=== PATIENT | female | born 1990 | race American Indian/Alaskan Native ===

== ENCOUNTER 2019-02-01 15:56 | Outpatient (CLI) | payer OTHER ==
[2019-02-01 16:31] VITALS: BP 113/66
--- NOTE | 2019-02-01 18:42 | Ultrasound Report ---
PROCEDURE: US OB BPP WO NON-STRESS TECHNIQUE: Ultrasound for biophysical profile obtained. HISTORY: decreased movement. COMPARISONS: 01/31/2019. FINDINGS: Single IUP visualized. Viable fetus with heart rate of 149 bpm. Biophysical profile is 8/8. IMPRESSION: Biophysical profile is 8/8.. This document is electronically signed by Dasia Lainez MD., Feb 01 2019 06:41:03 PM ET
== END 2019-02-01 15:57 | disposition home or self-care (01) ==
LOC: TRG 15:56
PROVIDERS: ATTEND Obstetrics & Gynecology
DX: O47.03 False labor before 37 completed weeks of gestation, third trimester (principal); Z3A.34 34 weeks gestation of pregnancy
CPT/HCPCS: 59025; 76819

== ENCOUNTER 2019-03-09 11:33 | Outpatient (CLI) | payer OTHER | END 2019-03-09 13:20 | disposition home or self-care (01) | LOC: TRG 11:33 | PROVIDERS: ATTEND Obstetrics & Gynecology | DX: O47.1 False labor at or after 37 completed weeks of gestation (principal); Z3A.40 40 weeks gestation of pregnancy | CPT/HCPCS: 59025 ==

== ENCOUNTER 2019-03-15 10:54 | Inpatient (IN) | payer OTHER ==
[2019-03-15] MEDS ORDERED: LACTATED RINGERS 1,000 ML IV ONE (13:00)
--- NOTE | 2019-03-15 14:08 | Ultrasound Report ---
PROCEDURE: US OB BPP WO NON-STRESS TECHNIQUE: Sonographic evaluation for breathing, movement, tone, and amniotic flui d volume was performed. HISTORY: DAYANA; non reactive NST COMPARISONS: 02/01/2019 . FINDINGS: FETUS Amniotic fluid volume Normal-score 2. At least one vertical pocket >2 cm or more in vertical axis . breathing: Normal-score 2 . movement: Normal-score 2 . tone: Normal-score 2 . Score: 8 of 8 . heart rate: 154 bpm IMPRESSION: Normal biophysical profile . This document is electronically signed by Maggi Bermudez MD., March 15 2019 02:07:00 PM ET
--- NOTE | 2019-03-15 14:10 | Ultrasound Report ---
PROCEDURE: US OB LIMITED TECHNIQUE: Limited obstetric ultrasound was performed for evaluation of hepatic fluid index. HISTORY: DAYANA COMPARISONS: Obstetric ultrasound performed on 01/30/2019 and 02/01/2019 FINDINGS: There is a single live intrauterine in cephalic presentation. heart rate is 154 bpm. Amniotic fluid index is 7.7 cm, which is in the lower limits of normal. IMPRESSION: Amniotic fluid index is 7.7 cm, which is in the lower limits of normal. This document is electronically signed by Maggi Bermudez MD., March 15 2019 02:08:38 PM ET
[2019-03-15] MEDS ORDERED: NITRATEST PAPER MC ONE (15:00)
[2019-03-15] MEDS ORDERED: XYLOCAINE 2% INFILTRATI ONE (15:15)
[2019-03-15] MEDS ORDERED: BRETHINE IVP PRN (15:15)
[2019-03-15] MEDS ORDERED: BRETHINE SUB-Q PRN (15:15)
[2019-03-15] MEDS ORDERED: MINERAL OIL PO PRN (15:15)
[2019-03-15] MEDS ORDERED: STADOL IV PRN (15:15)
[2019-03-15] MEDS ORDERED: SUBLIMAZE IV PRN (15:15)
[2019-03-15] MEDS: LACTATED RINGERS 1,000 ML IV SCH ×2 (15:44→20:01)
[2019-03-15] MEDS ORDERED: PITOCin/NS 30 UNIT/500ML 30 UNITS/500 ML BAG IV SCH ×2 (16:00)
[2019-03-15] MEDS ORDERED: PITOCin/NS 20 UNIT/1000ML DRIP 20 UNITS/1,000 ML BAG IV SCH (16:00)
[2019-03-15 18:19] LABS: Hematocrit 30.1 % (30.3-42.9); Hemoglobin 9.5 gm/dl (10.1-14.3); Mean Corpuscular HGB Conc 32 % (30-34); Mean Corpuscular Volume 71 fl (79-97); Platelet Count 277 K/mm3 (140-440); Red Blood Count 4.27 M/mm3 (3.65-5.03)
[2019-03-15 18:25] LABS: Red Cell Distribution Width 20.6 % (13.2-15.2)
[2019-03-15] MEDS ORDERED: NARCAN 2 MG/2 ML IV PRN (19:51)
--- NOTE | 2019-03-15 19:53 | Anesthesia Consultation ---
Anesthesia Consult and Med Hx - Airway Anesthetic Teeth Evaluation: Good ROM Head & Neck: Adequate Mental/Hyoid Distance: Adequate Mallampati Class: Class I Intubation Access Assessment: Good - Pulmonary Exam CTA: Yes - Cardiac Exam Cardiac Exam: RRR - Pre-Operative Health Status ASA Pre-Surgery Classification: ASA2 Proposed Anesthetic Plan: Epidural - Pulmonary Hx Asthma: No COPD: No Hx Pneumonia: No - Cardiovascular System Hx Hypertension: No - Central Nervous System Hx Seizures: No Hx Psychiatric Problems: No - Endocrine Hx Renal Disease: No Hx End Stage Renal Disease: No Hx Hypothyroidism: No Hx Hyperthyroidism: No - Hematic Hx Anemia: No Hx Sickle Cell Disease: No - Other Systems Hx Alcohol Use: No
--- NOTE | 2019-03-15 19:54 | Anesthesia Day of Surgery ---
Anesthesia Day of Surgery - Day of Surgery Patient Examined: Yes Patient H&P Reviewed: Yes Patient is NPO: Yes Beta Blockers: No Cardiac Clearance: No Pulmonary Clearance: No Gene's Test: N/A
[2019-03-15] MEDS ORDERED: fentaNYL-BUPIV 2 MCG/ML-0.125% 200 MCG/100 ML BAG EPIDURAL SCH (20:00)
[2019-03-15] MEDS ORDERED: MARCAINE 0.25% INFILTRATI ONE (20:14)
[2019-03-16] MEDS ORDERED: PEPCID IV ONE (00:32)
[2019-03-16] MEDS ORDERED: REGLAN IV ONE (00:32)
[2019-03-16] MEDS ORDERED: BICITRA ONE (00:41)
[2019-03-16] MEDS ORDERED: PHENERGAN PO PRN (00:42)
[2019-03-16] MEDS ORDERED: PHENERGAN PR PRN ×2 (00:42→05:26)
[2019-03-16] MEDS ORDERED: DILAUDID IV PRN (00:42)
[2019-03-16] MEDS ORDERED: NARCAN 0.4 MG/1 ML IV PRN ×2 (00:42→05:26)
[2019-03-16] MEDS ORDERED: ZOFRAN IV PRN ×2 (00:42→05:26)
[2019-03-16] MEDS ORDERED: BENADRYL IV PRN (00:42)
[2019-03-16] MEDS ORDERED: SODIUM CHLORIDE FLUSH SYRINGE 10 ML IV PRN ×2 (01:00→05:26)
[2019-03-16] MEDS ORDERED: XYLOCAINE 2%/ EPI 1:200,000 INFILTRATI ONE (01:07)
--- NOTE | 2019-03-16 01:36 | History and Physical Report ---
History of Present Illness Date of examination: 03/16/19 Date of admission: 03/15/19 14:40 Chief complaint: I'm having contractions History of present illness: Pt is a 28 year old who presents with contractions at 40.6 weeks and EDC 03/09/19. She has had an uncomplicated course and is scheduled for induction of labor on 03/18. Past History Past Medical History: no pertinent history Past Surgical History: no surgical history Family/Genetic History: hypertension Social history: single - Obstetrical History Expected Date of Delivery: 03/09/19 Actual Gestation: 41 Week(s) 0 Day(s) : 3 Para: 1 Medications and Allergies Allergies Allergy/AdvReac Type Severity Reaction Status Date / Time No Known Allergies Allergy Verified 03/15/19 11:11 Home Medications Medication Instructions Recorded Confirmed Last Taken Type No Known Home Medications [No 03/15/19 03/15/19 Unknown History Reported Home Medications] Active Meds: Active Medications Butorphanol Tartrate (Stadol) 2 mg IV Q2H PRN PRN Reason: Pain , Severe (7-10) Last Admin: 03/15/19 18:48 Dose: 2 mg Documented by: Diphenhydramine HCl (Benadryl) 12.5 mg IV Q2H PRN PRN Reason: Itching Ephedrine Sulfate (Ephedrine Sulfate) 10 mg IV Q2M PRN PRN Reason: Hypotension Fentanyl (Sublimaze) 100 mcg IV Q2H PRN PRN Reason: Labor Pain Last Admin: 03/15/19 17:01 Dose: 100 mcg Documented by: Hydromorphone HCl (Dilaudid) 0.5 mg IV Q5M PRN PRN Reason: Breakthrough Pain Oxytocin/Sodium Chloride (Pitocin/Ns 20 Unit/1000ml Drip) 20 units in 1,000 mls @ 125 mls/hr IV DIRECT RAGHAV Oxytocin/Sodium Chloride (Pitocin/Ns 30 Unit/500ml) 30 units in 500 mls @ 1 mls/hr IV TITR RAGHAV; Protocol Oxytocin/Sodium Chloride (Pitocin/Ns 30 Unit/500ml) 30 units in 500 mls @ 4 mls/hr IV TITR RAGHAV; Protocol Last Titration: 03/15/19 23:00 Dose: 2 ml/hr, 2 mls/hr Documented by: Lactated Ringer's (Lactated Ringers) 1,000 mls @ 125 mls/hr IV DIRECT RAGHAV Last Admin: 03/15/19 20:01 Dose: 125 mls/hr Documented by: Fentanyl/Bupivacaine/Sodium Chlor (Fentanyl-Bupiv 2 Mcg/Ml-0.125%) 200 mcg in 100 mls @ 12 mls/hr EPIDURAL TITR RAGHAV; Protocol Last Admin: 03/15/19 22:34 Dose: 12 mls/hr Documented by: Mineral Oil (Mineral Oil) 30 ml PO QHS PRN PRN Reason: Constipation Naloxone HCl (Narcan 0.4 Mg/1 Ml) 0.2 mg IV Q2MIN PRN PRN Reason: Res Rate </= 8 or 02 SAT < 92% Ondansetron HCl (Zofran) 4 mg IV Q8H PRN PRN Reason: Nausea And Vomiting Promethazine HCl (Phenergan) 25 mg PO Q6H PRN PRN Reason: Nausea And Vomiting Promethazine HCl (Phenergan) 25 mg WA Q6H PRN PRN Reason: Nausea And Vomiting Sodium Chloride (Sodium Chloride Flush Syringe 10 Ml) 10 ml IV PRN PRN PRN Reason: LINE FLUSH Terbutaline Sulfate (Brethine) 0.25 mg SUB-Q ONCE PRN PRN Reason: Hyperstimulation/Hypertonicity Terbutaline Sulfate (Brethine) 0.25 mg IVP ONCE PRN PRN Reason: Hyperstimulation/Hypertonicity Review of Systems All systems: negative Genitourinary: pelvic pain, contractions - Vital Signs Vital signs: Vital Signs Pulse BP 100 H 113/67 03/15/19 11:06 03/15/19 11:06 Temp Pulse Resp BP Pulse Ox 98.5 F 110 H 20 120/66 99 03/16/19 01:09 03/16/19 01:28 03/16/19 01:09 03/16/19 01:17 03/16/19 01:28 - Physical Exam Breasts: Cardiovascular: Regular rate, Normal S1, Normal S2 Lungs: Positive: Clear to auscultation, Normal air movement Abdomen: Positive: normal appearance, soft, normal bowel sounds. Negative: distention, tenderness Vulva: both: normal Vagina: Positive: normal moisture. Negative: discharge Cervix: Negative: lesion, discharge Uterus: Positive: normal size, normal contour Adnexa: both: normal Anus/Rectum: Positive: normal perianal skin, heme negative. Negative: rectal mass, hemorrhoids Extremities: Deep Tendon Reflex Grade: Normal +2 - Obstetrical FHR: auscultation normal Cervical Dilatation: 4 Cervical Effacement Percentage: 80 station: -3 Uterine Contraction Pattern: Regular Uterine Tone Measurement Phase: Contraction Uterine Contraction Intensity: Moderate Results Result Diagrams: 03/15/19 17:55 Abnormal lab results 03/15/19 Range/Units 17:55 WBC 12.5 H (4.5-11.0) K/mm3 Hgb 9.5 L (10.1-14.3) gm/dl Hct 30.1 L (30.3-42.9) % MCV 71 L (79-97) fl MCH 22 L (28-32) pg RDW 20.6 H (13.2-15.2) % All other labs normal. Assessment and Plan IUP at 40.6 in labor. Pt had arom while in triage for light meconium. Will admit for augmentation of labor. GBs negative. Anticipate .
[2019-03-16] MEDS ORDERED: ZOFRAN ONE ×2 (01:52→02:32)
[2019-03-16] MEDS ORDERED: SUBLIMAZE ONE (01:52)
--- NOTE | 2019-03-16 01:52 | Event Note ---
Date: 03/16/19 Was advised by nursing staff that patient was 8-9cm at approximately 8pm. Patient also began having late decelerations with pitocin. Despite position adjustments and contractions, patient did not progress past 9cm. Will now proceed with urgent .
[2019-03-16] MEDS ORDERED: LACTATED RINGERS 1,000 ML ONE ×2 (01:53→02:46)
[2019-03-16] MEDS ORDERED: ANCEF/STERILE WATER 2 GM/20 ML IV ONE (01:55)
[2019-03-16] MEDS ORDERED: NEO SYNEPHRINE/NS Syringe(OR USE) IV ONE (01:55)
[2019-03-16] MEDS ORDERED: TORADOL ONE (02:08)
--- NOTE | 2019-03-16 02:50 | Procedure Note ---
OB Delivery Note - Delivery Date of Delivery: 03/16/19 Surgeon: PEG LÓPEZ Estimated blood loss: other (650) - Section Preop diagnosis: arrest of descent, nonreassuring FHR tracing Postop diagnosis: same section procedure: primary low transverse Disposition: PACU Complications: none Narrative: see op report - Infant A at 1 minute: 8 at 5 minutes: 9 Gender: Male (3934g, 8 pounds 11 ounces)
--- NOTE | 2019-03-16 02:59 | Operative Report ---
Operative Report Operative Report: The operative report for patient Tessa Jackson Date of service 03/16/2019 Preoperative diagnosis: Intrauterine at 40-6/7 weeks 2. Arrested labor 3. intolerance of labor Postoperative diagnosis: Same with deep transverse arrest and meconium fluid Procedure: Primary low transverse section Surgeon: Dr. Genia Gracia EBL: 650 mL Urine output: 100 mL IV fluids: 1300 mL LR Findings: Viable male in the vertex occiput posterior position. Weight 8 lbs. 11 oz. 3934 g Apgars 8 and 9]. Otherwise normal pelvic anatomy Specimens: None Complications: None Procedure: The patient was admitted to the OR with IV running and in place. She was properly identified as herself. Her spinal had been placed in the room and she was already under the effects of anesthesia upon entry into the OR. She was placed in the dorsal supine position with a leftward tilt. A Townsend catheter was inserted. She was then prepped and draped in the normal sterile fashion. An Allis test was used to confirm adequate anesthesia. Once confirmed, the incision was made with the scalpel and carried to the underlying fascia using the scalpel and the Bovie. The fascia was incised in the midline and incision was extended bilaterally using the curved Mcguire scissors. The fascia was then dissected from the underlying rectus muscles in a series of sharp and blunt dissection using the Mcguire scissors. Muscles were in the in the midline sharply using Metzenbaum scissors and the peritoneum was entered into bluntly using the surgeon's fingers. A bladder blade was then placed into the incision to protect the bladder. Following this the bladder flap was created. Hysterotomy incision was then made in the scalpel. Upon uterine entry, the amniotic sac was ruptured for meconium fluid. The was then delivered in the occiput posterior position. His mouth and nose were suctioned on the field. The cord was clamped and cut and he was handed to the waiting NICU personnel. The placenta was delivered manually and taken off the field. The uterus was then exteriorized and cleared of all clots and debris. The hysterotomy incision was then closed in a running locked fashion using 0 Vicryl. The abdomen was then copiously irrigated with warm normal saline. Following this the uterus was replaced into the abdominal cavity. At this point the muscles were reapproximated in the midline using individual sutures of 0 Vicryl. Following this the fascia was closed in a running fashion using 0 Vicryl. Tissue was then copiously irrigated. . Skin was closed in a running fashion using 3-0 Monocryl. The sponge lap needle and instrument counts were correct 2. The patient tolerated the procedure well. She was taken to recovery in stable condition.
--- NOTE | 2019-03-16 03:34 | Post Anesthesia Evaluation ---
- Post Anesthesia Evaluation Patient Participated: Yes Airway Patent: Yes Stable Respiratory Function: Yes Nausea/Vomiting: No Temp > 96.8F: Yes Pain Manageable: Yes Adequeate Hydration: Yes Anesthesia Complications: No Block Receding Appropriately: Yes Patient on Ventilator: No
[2019-03-16] MEDS ORDERED: MYLICON PO PRN (05:26)
[2019-03-16] MEDS ORDERED: TUCKS PAD TP PRN (05:26)
[2019-03-16] MEDS ORDERED: MORPHINE IV PRN (05:26)
[2019-03-16] MEDS ORDERED: MILK OF MAGNESIA PO PRN (05:26)
[2019-03-16] MEDS ORDERED: TYLENOL PO PRN (05:26)
[2019-03-16] MEDS ORDERED: TORADOL IV PRN (05:26)
[2019-03-16] MEDS ORDERED: LANSINOH TP PRN (05:26)
[2019-03-16] MEDS ORDERED: PITOCin/NS 20 UNIT/1000ML DRIP 20 UNITS/1,000 ML BAG IV SCH (05:26)
[2019-03-16] MEDS ORDERED: D5LR 1,000 ML IV SCH (08:00)
[2019-03-16] MEDS: PERCOCET 5/325 PO PRN ×2 (09:51→21:36)
[2019-03-16] MEDS: PRENATAL VITAMIN PO SCH (09:55)
[2019-03-16] MEDS: IBUPROFEN PO PRN ×2 (09:56→21:37)
[2019-03-16] MEDS ORDERED: FEOSOL PO SCH (10:00)
[2019-03-16 16:00] LABS: Hematocrit 22.7 % (30.3-42.9)
[2019-03-16] MEDS: FEOSOL PO SCH (21:36)
--- NOTE | 2019-03-17 08:26 | Progress Note ---
Assessment and Plan - Patient Problems (1) delivery delivered Current Visit: Yes Status: Acute Plan to address problem: routine postoperative care advance diet as tolerated Subjective - Subjective Date of service: 03/17/19 Interval history: POD #1 s/p delivery. Patient reports having flatus. States having some operative pain that is improving. Voiding without difficulty. Patient reports: appetite normal, voiding normally, flatus : doing well Objective - Vital Signs Latest vital signs: Vital Signs Temp Pulse Resp BP Pulse Ox 03/17/19 01:30 98.4 F 96 H 18 117/68 98 03/16/19 22:37 18 03/16/19 22:36 18 03/16/19 21:37 18 03/16/19 21:36 18 03/16/19 20:41 98.6 F 108 H 18 116/76 98 03/16/19 18:02 98.1 F 91 H 16 114/65 100 03/16/19 12:44 98.4 F 91 H 16 119/75 99 03/16/19 09:47 97.7 F 96 H 16 116/78 98 Intake and Output 03/16/19 03/17/19 03/17/19 22:59 06:59 14:59 Intake Total 480 240 Output Total 300 400 Balance 180 -160 Intake: Intake, Free Water 480 240 Output: Urine 300 400 Void 300 400 Other: Total, Output Amount 300 400 # Voids Void 2 - Exam Abdomen: Present: normal appearance Incision: Present: dressed - Labs Labs: Abnormal lab results 03/16/19 Range/Units 15:51 Hgb 7.0 L (10.1-14.3) gm/dl Hct 22.7 L D (30.3-42.9) %
[2019-03-17] MEDS: PERCOCET 5/325 PO PRN ×3 (08:30→23:10)
[2019-03-17] MEDS: FEOSOL PO SCH ×3 (08:30→21:14)
[2019-03-17] MEDS: IBUPROFEN PO PRN ×3 (08:30→23:11)
[2019-03-17] MEDS: PRENATAL VITAMIN PO SCH (10:44)
[2019-03-18] MEDS: IBUPROFEN PO PRN ×2 (06:15→20:11)
[2019-03-18] MEDS: PERCOCET 5/325 PO PRN ×2 (08:49→20:10)
[2019-03-18] MEDS: PRENATAL VITAMIN PO SCH (08:49)
[2019-03-18] MEDS: FEOSOL PO SCH ×3 (08:49→20:11)
--- NOTE | 2019-03-18 12:53 | Progress Note ---
Assessment and Plan A: 1. POD 1 s/p primary LTCS for arrest of dilation 2. Vital signs stable, passing flatus 3. Incisional pain 4. Iron deficiency anemia P: Plan for discharge to home tomorrow Assess incision upon dressing removal Ferrous sulfate TID Subjective - Subjective Date of service: 03/18/19 Principal diagnosis: Post-op day 2 Interval history: Pt is post-op day 2 s/p primary LTCS for arrest of dilation. She is feeling well overall, some stinging pain at incision site upon sudden movement. Labs indicate hemoglobin 9.5 -> 7.0 Patient reports: appetite normal, voiding normally, pain well controlled, f latus, ambulating normally [place]: doing well Objective - Vital Signs Latest vital signs: Vital Signs Temp Pulse Resp BP BP Pulse Ox 03/18/19 08:11 98.4 F 96 H 20 135/85 03/18/19 06:15 18 03/18/19 00:36 16 03/18/19 00:35 98.4 F 94 H 121/68 97 03/18/19 00:11 18 03/17/19 23:11 18 03/17/19 23:10 18 03/17/19 17:19 20 03/17/19 17:18 20 03/17/19 16:40 97.9 F 98 H 20 109/67 Intake and Output 03/17/19 03/18/19 03/18/19 23:59 07:59 15:59 Intake Total 120 720 240 Balance 120 720 240 Intake: Oral 120 720 240 Other: Total, Intake Amount 120 720 240 # Voids Void 1 3 1 - Exam Cardiovascular: Present: Regular rate, Normal S1, Normal S2, No murmurs Lungs: Present: Clear to auscultation, Normal air movement Abdomen: Present: normal appearance, soft, normal bowel sounds Uterus: Present: normal, firm, fundal height below umbilicus Extremities: Present: normal Incision: Present: normal, dry, other (Feels some stinging pain due to movement. Dressing still applied.)
--- NOTE | 2019-03-18 12:58 | Discharge Summary ---
Providers - Providers Date of Admission: 03/15/19 14:40 Date of discharge: 03/19/19 Attending physician: JOHNIE HERNANDEZ Primary care physician: JOHNIE HERNANDEZ Hospitalization Reason for admission: active labor Delivery: Procedure: section, primary low transverse (For intolerance of labor and failure to dilate past 9 cm. OP presentation) Episiotomy: none Incision: normal, dry Other procedures: none complications: none Discharge diagnosis: IUP at term delivered Condition at discharge: Good Disposition: DC-30 STILL A PATIENT Plan - Discharge Medications Prescriptions: Ferrous Sulfate [Feosol 325 MG tab] 325 mg PO TID 30 Days #90 tablet Ibuprofen [Motrin] 800 mg PO Q8HR PRN #60 tablet PRN Reason: Pain, Mild (1-3) oxyCODONE /ACETAMINOPHEN [Percocet 5/325] 1 tab PO Q6HR PRN #30 tablet PRN Reason: Pain Vit-Fe Fumar-FA [ Vitamin] 1 each PO QDAY 30 Days #30 tablet - Provider Discharge Summary Additional instructions: [] Smoking cessation referral if applicable(refer to patient education folder for contact #) [] Refer to [facility] Booklet Call your doctor immediately for: * Fever > 100.5 * Heavy vaginal bleeding ( >1 pad per hour) * Severe persistent headache * Shortness of breath * Reddened, hot, painful area to leg or breast * Drainage or odor from incision. * Keep incision clean and dry at all times and follow doctor's instructions rega rding bathing/showering - Follow up plan Follow up: NABIL KEMP MD [Staff Physician] - 14 Days
[2019-03-18] MEDS ORDERED: FEOSOL PO SCH (14:00)
[2019-03-19] MEDS: IBUPROFEN PO PRN ×2 (03:20→13:30)
[2019-03-19] MEDS: PERCOCET 5/325 PO PRN (03:21)
--- NOTE | 2019-03-19 08:26 | Progress Note ---
Assessment and Plan A: POD3 s/p primary LTCS for arrest of dilation. course uneventful. Ok for discharge to home today P: Schedule appt in 2 weeks for incision check and 4-6 weeks for pp evaluation Subjective - Subjective Date of service: 03/19/19 Principal diagnosis: Post-op day 3 Interval history: Pt is post-op day 3 s/p primary LTCS for arrest of dilation. She is feeling well overall, some stinging pain at incision site upon sudden movement. Labs indicate hemoglobin 9.5 -> 7.0 Patient reports: appetite normal, voiding normally, pain well controlled, flatus, ambulating normally [place]: doing well, nursing well Objective - Vital Signs Latest vital signs: Vital Signs Temp Pulse Resp BP BP Pulse Ox 03/19/19 03:21 18 03/19/19 03:20 18 03/19/19 00:31 98.4 F 82 18 121/78 99 03/18/19 20:11 18 03/18/19 20:10 18 03/18/19 17:10 98.5 F 95 H 20 120/62 Intake and Output 03/18/19 03/19/19 03/19/19 23:59 07:59 15:59 Intake Total 360 Balance 360 Intake: Oral 120 Intake, Free Water 240 Other: Total, Intake Amount 120 # Voids Void 2 2 - Exam Cardiovascular: Present: Regular rate, Normal S1, Normal S2, No murmurs Abdomen: Present: normal appearance, soft, normal bowel sounds Uterus: Present: normal, firm, fundal height at umbilicus Extremities: Present: normal Incision: Present: normal, dry, intact
[2019-03-19] MEDS: PRENATAL VITAMIN PO SCH (08:53)
[2019-03-19 14:12] VITALS: BP 118/81
== END 2019-03-19 14:24 | disposition home or self-care (01) | DRG 765 ==
LOC: TRG 10:54 → LD 14:40 → OB 03-16 05:17
PROVIDERS: ADMIT Obstetrics & Gynecology; ATTEND Obstetrics & Gynecology
PROC: 10D00Z1 Extraction of Products of Conception, Low, Open Approach (ICD-10-PCS; principal; 2019-03-16)
DX: O77.0 Labor and delivery complicated by meconium in amniotic fluid (principal); D62 Acute posthemorrhagic anemia; O76 Abnormality in fetal heart rate and rhythm complicating labor and delivery; O99.02 Anemia complicating childbirth; D50.9 Iron deficiency anemia, unspecified; O62.1 Secondary uterine inertia; O64.0XX0 Obstructed labor due to incomplete rotation of fetal head, not applicable or unspecified; O62.0 Primary inadequate contractions; Z37.0 Single live birth; Z3A.40 40 weeks gestation of pregnancy
CPT/HCPCS: 36415; 59025; 76815; 76819; 85014; 85018; 85027; 86592; 86850; 86900; 86901; 96360; 96361; G0378; J0595; J0690; J1885; J2270; J2370; J2405; J2590; J2765; J3010; J3105; J7120; J7121

== ENCOUNTER 2021-03-22 12:23 | Emergency (ER) | payer OTHER ==
--- NOTE | 2021-03-22 14:19 | Emergency Department Report ---
ED Syncope HPI - General Chief Complaint: Syncope Stated Complaint: SYNCOPAL EPISODE Time Seen by Provider: 03/22/21 13:09 - History of Present Illness Initial Comments: Chief complaint: "I just passed out." HPI: This is a healthy 30-year-old female with no significant past medical history who presents after a syncopal episode. Today she felt generally weak. She developed fever and chills despite air conditioning in her vehicle. She felt as if she was going to vomit. After attempting to vomit on the side of the car, she fainted upon standing. She has mild headache and sore throat. 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 No known sick contacts. Her children and mother are symptom-free. She denies chest pain, cough, abdominal pain, diarrhea. She denies loss of taste or smell. She does not take oral cont raceptives. No leg pain or recent travel. Mild dull frontal headache. No radiation. Patient took a serum test 1 week ago.. Her menstrual period was late. Timing/Prior Episodes: single episode today Precipitating Factors: Positive: other (Fever chills nausea) Context: standing Loss of Consciousness: brief (seconds) Current Symptoms: back to normal - Related Data Allergies/Adverse Reactions: Allergies No Known Allergies Allergy (Verified 03/15/19 11:11) Home Medications: Ambulatory Orders Ibuprofen [Motrin] 800 mg PO Q8HR PRN #60 tablet 03/17/19 oxyCODONE /ACETAMINOPHEN [Percocet 5/325] 1 tab PO Q6HR PRN #30 tablet 03/17/19 Ferrous Sulfate [Feosol 325 MG tab] 325 mg PO TID 30 Days #90 tablet 03/18/19 Vit-Fe Fumar-FA [ Vitamin] 1 each PO QDAY 30 Days #30 tablet 03/18/19 Docusate Sodium [Colace CAP] 100 mg PO BID PRN 15 Days #30 capsule 03/19/19 ED Review of Systems ROS: Stated complaint: SYNCOPAL EPISODE Other details as noted in HPI Comment: All other systems reviewed and negative Constitutional: chills, fever, malaise ENT: throat pain Respiratory: denies: cough, shortness of breath Cardiovascular: denies: chest pain Gastrointestinal: nausea. denies: abdominal pain, vomiting, diarrhea Neurological: headache ED Past Medical Hx - Past Medical History Previous Medical History?: No Hx Hypertension: No Hx Congestive Heart Failure: No Hx Diabetes: No Hx Deep Vein Thrombosis: No Hx Renal Disease: No Hx Sickle Cell Disease: No Hx Seizures: No Hx Asthma: No Hx COPD: No Hx HIV: No - Surgical History Past Surgical History?: Yes Additional Surgical History: - Family History Family history: hypertension - Social History Smoking Status: Never Smoker Substance Use Type: None - Medications Home Medications: Home Medications Medication Instructions Recorded Confirmed Last Taken Type Ibuprofen [Motrin] 800 mg PO Q8HR PRN #60 tablet 03/17/19 Unknown Rx oxyCODONE /ACETAMINOPHEN [Percocet 1 tab PO Q6HR PRN #30 tablet 03/17/19 Unknown Rx 5/325] Ferrous Sulfate [Feosol 325 MG tab] 325 mg PO TID 30 Days #90 tablet 03/18/19 Unknown Rx Vit-Fe Fumar-FA [ 1 each PO QDAY 30 Days #30 tablet 03/18/19 Unknown Rx Vitamin] Docusate Sodium [Colace CAP] 100 mg PO BID PRN 15 Days #30 03/19/19 Unknown Rx capsule ED Physical Exam - General Limitations: No Limitations General appearance: alert, in no apparent distress - Head Head exam: Present: atraumatic, normocephalic - Eye Eye exam: Present: normal appearance - ENT ENT exam: Present: mucous membranes moist - Neck Neck exam: Present: normal inspection, full ROM - Respiratory Respiratory exam: Present: normal lung sounds bilaterally. Absent: respiratory distress, wheezes, rales, stridor - Cardiovascular Cardiovascular Exam: Present: regular rate, normal rhythm, normal heart sounds. Absent: systolic murmur, diastolic murmur, rubs, gallop - GI/Abdominal GI/Abdominal exam: Present: soft, normal bowel sounds. Absent: distended, tenderness, guarding, rebound - Extremities Exam Extremities exam: Present: normal inspection - Neurological Exam Neurological exam: Present: alert, oriented X3 - Psychiatric Psychiatric exam: Present: normal affect, normal mood - Skin Skin exam: Present: warm, dry, intact, normal color. Absent: rash ED Course Vital Signs 03/22/21 03/22/21 03/22/21 12:45 13:31 13:45 Temperature 100.9 F H Pulse Rate 94 H 100 H 104 H Respiratory 16 12 20 Rate Blood Pressure 119/59 119/59 Blood Pressure 108/72 [Right] O2 Sat by Pulse 98 98 100 Oximetry 03/22/21 13:56 Temperature Pulse Rate 60 Respiratory 18 Rate Blood Pressure 126/76 Blood Pressure [Right] O2 Sat by Pulse 100 Oximetry ED Medical Decision Making - EKG Data -: EKG Interpreted by Me EKG shows normal: sinus rhythm, axis, intervals, QRS complexes, ST-T waves Rate: normal - EKG Data Interpretation: normal EKG 03/22/21 14:17 EKG obtained 1411 EKG interpreted by me Normal sinus rhythm normal rate normal axis normal intervals no ST elevation no ST-T signs of ischemia normal EKG rate 95 bpm - Medical Decision Making 1. Vasovagal syncope: PERC negative for PE. Syncopal episode occurred after retching and upon standing. No indication of structural heart disease or arrhythmia. 2. Viral syndrome: Considering [place] airport I suspect COVID-19 infection. I recommended isolation until she receives negative test. I recommended obtaining a rapid Covid test as soon as possible. CBC chemistry test all within normal limits. Critical care attestation.: If time is entered above; I have spent that time in minutes in the direct care of this critically ill patient, excluding procedure time. ED Disposition Clinical Impression: Vasovagal syncope, Viral syndrome, Suspected COVID-19 virus infection Disposition: -01 TO HOME OR SELFCARE Is pt being admited?: No Does the pt Need Aspirin: No Condition: Stable Instructions: Syncope (ED), Syncope, [id number], Viral Illness, Adult Additional Instructions: Please obtain a COVID-19 test. Referrals: BUCKY MARTIN MD [Staff Physician] - 3-5 Days Forms: Work/School Release Form(ED)
[2021-03-22 14:45] LABS: BUN/Creatinine Ratio 9; Blood Urea Nitrogen 9 mg/dL (7-17); Hemolysis Index 2
[2021-03-22 15:21] LABS: Basophils % (Auto) 0.1 % (0.0-1.8); Hematocrit 39.9 % (30.3-42.9); Hemoglobin 13.4 gm/dl (10.1-14.3); Lymphocytes % (Auto) 6.8 % (13.4-35.0); Mean Corpuscular HGB Conc 34 % (30-34); Mean Corpuscular Volume 84 fl (79-97); Monocytes # (Auto) 0.8 K/mm3 (0.0-0.8); Monocytes % (Auto) 5.6 % (0.0-7.3); Platelet Count 329 K/mm3 (140-440); Red Blood Count 4.76 M/mm3 (3.65-5.03); Red Cell Distribution Width 13.9 % (13.2-15.2)
[2021-03-22 17:06] VITALS: BP 126/75
--- NOTE | 2021-03-23 09:14 | Electrocardiograph Report ---
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
== END 2021-03-22 14:43 | disposition home or self-care (01) ==
LOC: ED 12:23
DX: R55 Syncope and collapse (principal); Z20.822 Contact with and (suspected) exposure to COVID-19; B34.9 Viral infection, unspecified; Z98.890 Other specified postprocedural states; Z79.1 Long term (current) use of non-steroidal anti-inflammatories (NSAID); Z79.899 Other long term (current) drug therapy
CPT/HCPCS: 36415; 80048; 84702; 85025; 93005